=== PATIENT | female | born 1945 | race Caucasian/White ===

== ENCOUNTER 2021-04-18 13:04 | Outpatient (CLI) | payer MEDICARE, SELFPAY ==
--- NOTE | ~2021-04-18 | PE_ITS ---
EXAMINATION: PET skull to mid thigh DATE: 04/18/2021 15:06 INDICATION: Abnormal CT and lung nodules. TECHNIQUE: Blood glucose level was 92 mg/dL. 10.655 mCi of 18-fluorodeoxyglucose (18-FDG) was adminis tered i.v. Low dose computed tomography (CT) images were acquired from the base of the brain to the p roximal thighs for attenuation correction and anatomic localization. Positron emission tomography (PE T) images were acquired in the same distribution beginning 61 minutes after injection. Images includi ng fused PET/CT images were reconstructed in axial, coronal, and sagittal planes. Automated exposure control technique was employed. The dose-length product was 209.50mGy-cm. COMPARISON: None FINDINGS: Head/neck: There is symmetric increased activity in the oral cavity, palatine tonsils, parotid glands, laryngea l muscles and ocular muscles without CT correlate, likely physiologic. No pathologically enlarged cer vical lymphadenopathy or suspicious foci of increased FDG uptake in the visualized head or neck. Chest: Moderate emphysema. There are 7 mm nodules without associated abnormal FDG uptake in both the left an d right lower lobes. On the right is in a region of scarring and bronchiectasis and appears likely to represent a mucous impacted bronchus. No other suspicious pulmonary nodules. Additional mild atelect asis/scarring in the right middle lobe and lingula. No pneumonia, pulmonary edema or pleural effusion . Heart size is normal. Aortic valve calcification. Thoracic aorta is normal in caliber. No pathologi adolph enlarged thoracic lymphadenopathy or other abnormal FDG avid lesions in the thorax. Abdomen/pelvis/proximal thighs: Physiologic renal accumulation and excretion of FDG activity in the kidneys, bladder and along portio ns of ureters. Normal degree and heterogenous pattern of increased uptake throughout the liver withou t radiologic correlate or dominant FDG avid lesion. Gallbladder is not visualized and may be surgical ly absent. Extensive parenchymal calcifications scattered throughout the atrophic pancreas suggesting sequela of chronic pancreatitis. The spleen and bilateral adrenal glands are normal. Mild uptake sca ttered throughout the small bowels with diffuse prominent uptake throughout the colon without radiolo gic correlate, also likely physiologic. No other abnormal foci of increased FDG uptake or pathologica lly enlarged lymphadenopathy in the abdomen, pelvis or proximal thighs. Musculoskeletal: Thoracic kyphosis with chronic mild anterior wedging of a few mid thoracic vertebral bodies. Moderate cervical and thoracic and mild lumbar spondylosis. No suspicious lytic, blastic or FDG avid bone les ions.. IMPRESSION: 1. A couple 7 mm nodules in the left lower lobe and one most likely mucus impacted bronchus in the ri ght lower lobe which are both without associated FDG uptake. Recommend follow-up low-dose noncontrast chest CT at 6-12 months. 2. Moderate emphysema. 3. Extensive dystrophic calcific lesions throughout the atrophic pancreas suggesting sequela of chron ic pancreatitis. Reviewed, dictated and finalized at location A. IMPRESSION: 1. A couple 7 mm nodules in the left lower lobe and one most likely mucus impac roverto bronchus in the right lower lobe which are both without associated FDG upta ke. Recommend follow-up low-dose noncontrast chest CT at 6-12 months. 2. Moderate emphysema. 3. Extensive dystrophic calcific lesions throughout the atrophic pancreas sugge sting sequela of chronic pancreatitis.
[2021-04-18 13:48] LABS: Glucose Point of Care 92 mg/dl (65-105)
== END 2021-04-18 13:05 | disposition home or self-care (01) ==
PROVIDERS: PCP Internal Medicine; Visit Provider Internal Medicine
DX: J43.9 Emphysema, unspecified (principal); R91.8 Other nonspecific abnormal finding of lung field
CPT/HCPCS: 78815; 82948; A9552